=== PATIENT | male | born 1965 | race Caucasian/White ===

== ENCOUNTER 2017-01-11 11:39 | Emergency (ER) | payer SELFPAY ==
[~2017-01-11] VITALS: Ht 152.4 cm; Wt 75.0 kg
[2017-01-11 11:43] VITALS: Ht 152.4 cm; Wt 75.0 kg
--- NOTE | 2017-01-11 13:10 | ERA ---
ER Documentation Chief Complaint Date/Time DATE: 01/11/17 TIME: 13:09 Chief Complaint left flank/abd pain since 399,constipasion HPI The patient is a 51-year-old male, presenting to the ER because of left flank pain radiating to the left coronary that began about 4:30 AM this morning, 10/11 , no aggravating or relieving factors, denies similar symptoms previously, associated with constipation. He denies fever, chills, cough, neck pain, chest pain, dyspnea. He does not smoke nor drink Past medical history: Diabetes mellitus Past Surgical history: None ROS All systems reviewed and are negative except as per history of present illness. Medications Home Meds Active Scripts Metformin* (Glucophage*) 500 Mg Tab, 500 MG PO DAILY, #20 TAB Prov:TROY MONROY MD 01/11/17 Hydrocodone/Acetaminophen ([place] 5-325 Tablet) 1 Each Tablet, 1 TAB PO Q6H Y for PAIN, #7 TAB Prov:TROY MONROY MD 01/11/17 Tamsulosin Hcl* (Flomax*) 0.4 Mg Cap.er.24h, 0.4 MG PO QPM, #10 CAP Prov:TROY MONROY MD 01/11/17 Allergies Allergies: Coded Allergies: No Known Allergy (Unverified , 01/11/17) Physical Exam Vitals Vital Signs Date Time Temp Pulse Resp B/P Pulse Ox O2 Delivery O2 Flow Rate FiO2 01/11/17 14:40 98.0 62 18 146/89 99 01/11/17 11:43 98.0 89 18 167/100 99 Physical Exam Const: No acute distress. Head: Atraumatic. Eyes: Normal Conjunctiva. ENT: Normal External Ears, Nose and Mouth. Neck: Full range of motion. No meningismus. Resp: Clear to auscultation bilaterally. Cardio: Regular rate and rhythm. Abd: Soft, non distended, normal bowel sounds, Mild left flank tenderness, no right lower quadrant, troponin, epigastric, CVA tenderness Skin: No petechiae or rashes. Back: No midline or flank tenderness. Ext: No cyanosis, or edema. Neur: Awake and alert. No focal deficit Psych: Normal Mood and Affect. Result Diagram: 01/11/17 1320 01/11/17 1320 Results 24 hrs Laboratory Tests Test 01/11/17 13:20 01/11/17 14:27 White Blood Count 15.210^3/ul Red Blood Count 5.8210^6/ul Hemoglobin 16.0g/dl Hematocrit 48.1% Mean Corpuscular Volume 82.6fl Mean Corpuscular Hemoglobin 27.5pg Mean Corpuscular Hemoglobin Concent 33.3g/dl Red Cell Distribution Width 12.6% Platelet Count 46981^3/UL Mean Platelet Volume 10.8fl Neutrophils % 85.6% Lymphocytes % 8.8% Monocytes % 5.0% Eosinophils % 0.0% Basophils % 0.2% Nucleated Red Blood Cells % 0.0/100WBC Neutrophils # 13.010^3/ul Lymphocytes # 1.310^3/ul Monocytes # 0.810^3/ul Eosinophils # 0.010^3/ul Basophils # 0.010^3/ul Nucleated Red Blood Cells # 0.010^3/ul Sodium Level 134mmol/L Potassium Level 4.5mmol/L Chloride Level 101mmol/L Carbon Dioxide Level 25mmol/L Anion Gap 13 Blood Urea Nitrogen 18mg/dl Creatinine 1.02mg/dl Glucose Level 195mg/dl Calcium Level 9.6mg/dl Total Bilirubin 0.4mg/dl Direct Bilirubin 0.00mg/dl Indirect Bilirubin 0.4mg/dl Aspartate Amino Transf (AST/SGOT) 35IU/L Alanine Aminotransferase (ALT/SGPT) 58IU/L Alkaline Phosphatase 86IU/L Total Protein 8.5g/dl Albumin 4.4g/dl Globulin 4.10g/dl Albumin/Globulin Ratio 1.07 Lipase 57U/L Bedside Urine pH (LAB) 5.5 Bedside Urine Protein (LAB) Negative Bedside Urine Glucose (UA) 0.25% Bedside Urine Ketones (LAB) Negative Bedside Urine Blood Trace-lysed Bedside Urine Nitrite (LAB) Negative Bedside Urine Leukocyte Esterase (L Negative Current Medications Medications (Trade) Dose Ordered Sig/Harriet Route PRN Reason Start Time Stop Time Status Last Admin Dose Admin Morphine Sulfate (morphine) 4 mg ONCE STAT IV 01/11/17 13:14 01/11/17 13:15 DC 01/11/17 13:44 Ondansetron HCl (Zofran Inj) 4 mg ONCE STAT IV 01/11/17 13:14 01/11/17 13:15 DC 01/11/17 13:44 Procedures/MDM [facility] [address] [address] Radiology Main Line: [phone] DIAGNOSTIC IMAGING REPORT Patient: MILAGRO ALVAREZ : 1965 Age: 51 Sex: M MR #: [id number] DOS: 01/11/17 1314 Ordering MD: TROY MONROY MD Location: E/R Room/Bed: PROCEDURE: CT Abdomen and Pelvis without intravenous contrast. CLINICAL INDICATION: Left flank pain . Constipation TECHNIQUE: CT scan of the abdomen and pelvis without intravenous contrast was performed on a multi-slice CT scanner. Coronal and sagittal reformatted images were obtained from the axial source images. Images were reviewed on a high- resolution PACS workstation. Total DLP = 929.1 mGy-cm. CTDIvol = 15.4 mGy. One or more of the following dose reduction techniques were used: Automated exposure control. Adjustment of the mA and/or kV according to patient size. Use of iterative reconstruction technique. COMPARISON: None. FINDINGS: CT abdomen and pelvis: The lung bases are clear. The heart size is normal in size. The liver is normal in size and diffusely fatty in density without focal mass or intrahepatic biliary dilatation. The spleen is normal in size and homogeneous in density. The pancreas as visualized is normal. The gallbladder shows no evidence of stones or distension . The adrenal glands are normal. The kidneys are symmetric in size. There is mild left-sided hydroureteronephrosis with perinephric inflammation due to a 2 mm stone at the left vesicoureteral junction. There is a nonobstructing 2 mm stone in the right kidney. No evidence of right-sided obstructive uropathy.. The stomach is partially collapsed, but is grossly unremarkable. The small bowels are unremarkable. The colon and rectum are normal. The appendix is normal. There is no evidence of appendicitis or diverticulitis. The pelvic organs are normal. The bladder is normal. There is no abdominal or pelvic adenopathy, free fluid, free air, mass or mesenteric inflammation. The aorta is normal in caliber and course. The osseous structures are intact. No osteolytic or osteoblastic lesions are identified. The soft tissues are within normal limits. Lack of IV and oral contrast limits sensitivity of exam. IMPRESSION: 1. Left vesicoureteral junction 2 mm stone with mild left hydroureteronephrosis and perinephric inflammation. 2. Nonobstructing right renal calculus. 3. Hepatic steatosis. RPTAT: GG .Meng Jerry MD, MD Date Time Electronically viewed and signed by .Meng Jerry MD, MD on 01/11/2017 14:05 .L/ CC: TROY MONROY MD MEDICAL MAKING DECISION: The patient is a 51-year-old male, presenting with acute left renal colic He was treated with morphine 4 mg IV for pain, Zofran 4 mg IV for nausea with good response The differential diagnoses considered include but are not limited to cholelithiasis, cholecystitis, cystitis, pancreatitis, hepatitis, gastritis, peptic ulcer disease, gastric ulcer, appendicitis, diverticulitis, cholangitis, choledocholithiasis, partial small bowel obstruction. Departure Diagnosis: Primary Impression: Renal colic on left side Additional Impression: Hepatic steatosis Condition: Good Comments He was discharged with Flomax, [place] I discussed the findings with the patient. I advised the patient to follow-up with the on-call urologist Dr. Naranjo in about 1-2 days, sooner if needed and return if any concern. TROY MONROY MD Jan 11, 2017 13:10
[2017-01-11] MEDS ORDERED: ONDANSETRON 4 MG INJ IV STA (13:14)
[2017-01-11] MEDS ORDERED: morphine 4 MG/ML VIAL IV STA (13:14)
[2017-01-11 13:34] LABS: BASOPHILS % 0.2 % (0.0-2.0); HEMATOCRIT 48.1 % (42.0-52.0); LYMPHOCYTES # 1.3 10^3/ul (0.8-2.9); LYMPHOCYTES % 8.8 % (15.0-51.0); MEAN CORPUSCULAR HEMOGLOBIN 27.5 pg (29.0-33.0); MEAN CORPUSCULAR HGB CONC 33.3 g/dl (32.0-37.0); MEAN CORPUSCULAR VOLUME 82.6 fl (82.0-101.0); MEAN PLATELET VOLUME 10.8 fl (7.4-10.4); MONOCYTE # 0.8 10^3/ul (0.3-0.9); NEUTROPHILS % 85.6 % (39.0-77.0); PLATELET COUNT 195 10^3/UL (140-415); RED BLOOD COUNT 5.82 10^6/ul (4.70-6.10); RED CELL DISTRIBUTION WIDTH 12.6 % (11.5-14.5); WHITE BLOOD COUNT 15.2 10^3/ul (4.8-10.8)
[2017-01-11 13:55] LABS: ALBUMIN 4.4 g/dl (3.3-4.9); ALBUMIN/GLOBULIN RATIO 1.07; BILIRUBIN,INDIRECT 0.4 mg/dl (0-1.1); BILIRUBIN,TOTAL 0.4 mg/dl (0.2-1.3); CALCIUM 9.6 mg/dl (8.4-10.2); CREATININE 1.02 mg/dl (0.61-1.24); POTASSIUM 4.5 mmol/L (3.5-5.1); TOTAL PROTEIN 8.5 g/dl (6.1-8.1)
--- NOTE | 2017-01-11 14:06 | RADRPT ---
PROCEDURE: CT Abdomen and Pelvis without intravenous contrast. CLINICAL INDICATION: Left flank pain . Constipation TECHNIQUE: CT scan of the abdomen and pelvis without intravenous contrast was performed on a multi -slice CT scanner. Coronal and sagittal reformatted images were obtained from the axial source image s. Images were reviewed on a high-resolution PACS workstation. Total DLP = 929.1 mGy-cm. CTDIvol = 15.4 mGy. One or more of the following dose reduction techniques were used: Automated exposure control. Adjustment of the mA and/or kV according to patient size. Use of iterative reconstruction technique. COMPARISON: None. FINDINGS: CT abdomen and pelvis: The lung bases are clear. The heart size is normal in size. The liver is normal in size and diffus [place] fatty in density without focal mass or intrahepatic biliary dilatation. The spleen is normal in size and homogeneous in density. The pancreas as visualized is normal. The gallbladder shows no evidence of stones or distension . The adrenal glands are normal. The kidneys are symmetric in si ze. There is mild left-sided hydroureteronephrosis with perinephric inflammation due to a 2 mm stone at the left vesicoureteral junction. There is a nonobstructing 2 mm stone in the right kidney. No e vidence of right-sided obstructive uropathy.. The stomach is partially collapsed, but is grossly unremarkable. The small bowels are unremarkable. The colon and rectum are normal. The appendix is normal. There is no evidence of appendicitis or di verticulitis. The pelvic organs are normal. The bladder is normal. There is no abdominal or pelvic a denopathy, free fluid, free air, mass or mesenteric inflammation. The aorta is normal in caliber and course. The osseous structures are intact. No osteolytic or osteo blastic lesions are identified. The soft tissues are within normal limits. Lack of IV and oral con trast limits sensitivity of exam. IMPRESSION: 1. Left vesicoureteral junction 2 mm stone with mild left hydroureteronephrosis and perinephric inf lammation. 2. Nonobstructing right renal calculus. 3. Hepatic steatosis. RPTAT: GG .Meng Jerry MD, MD Date Time Electronically viewed and signed by .Meng Jerry MD, on 01/11/2017 14:05 .L/
[2017-01-11] MEDS ORDERED: HYDR-906 PO (14:18)
[2017-01-11] MEDS ORDERED: TAMS-14 PO (14:18)
[2017-01-11 14:19] LABS: URINE BLOOD (Dip) POC Trace-lysed (NEGATIVE)
[2017-01-11] MEDS ORDERED: METF500T4 PO (14:24)
[2017-01-11 14:40] VITALS: BP 146/89; PULSE 62; RESP 18; TEMP 98
[2017-01-12] MEDS ORDERED: ONDA4TAB14 PO (19:03)
== END 2017-01-11 14:41 | disposition home or self-care (01) ==
LOC: E/R 11:39
DX: N23 Unspecified renal colic (principal); K76.0 Fatty (change of) liver, not elsewhere classified; E11.9 Type 2 diabetes mellitus without complications; Z79.84 Long term (current) use of oral hypoglycemic drugs
CPT/HCPCS: 36415; 74176; 80053; 81003; 83690; 85025; 96374; 96375; 99285; J2270; J2405

== ENCOUNTER 2017-01-12 16:32 | Emergency (ER) | payer OTHER ==
[~2017-01-12] VITALS: Ht 165.1 cm; Wt 89.0 kg
[~2017-01-12 16:32] MED LIST: HYDR-906 PO; METF500T4 PO; TAMS-14 PO
[2017-01-12 16:42] VITALS: Ht 165.1 cm; Wt 89.0 kg
[2017-01-12] MEDS ORDERED: ONDANSETRON (ODT) 4 MG TAB ODT STA (18:54)
--- NOTE | 2017-01-12 19:00 | ERD ---
ER Documentation Chief Complaint Date/Time DATE: 01/12/17 TIME: 18:56 Chief Complaint N/V x 1 day HPI 51-year-old male presents to emergency department for vomiting episodes this morning together with his pain. Patient was seen here yesterday, was diagnosed of renal colic, patient continued to have pain this morning, had left flank pain radiating to the left groin area, was diagnosed to have kidney stones yesterday after laboratory tests and CT scan done. Patient took [place] for pain with much relief. Patient was worried since he had vomiting together with the pain. The vomiting has resolved. At this time, patient denies any pain. Patient states that he passed stones from his urine, now is completely symptom- free, denies any hematuria. Patient denies any fever or chills. ROS All systems reviewed and are negative except as per history of present illness. Medications Home Meds Active Scripts Ondansetron (Ondansetron Odt) 4 Mg Tab.rapdis, 4 MG PO Q6H Y for NAUSEA AND/OR VOMITING, #20 TAB Prov:FISH TINAJERO NP 01/12/17 Metformin* (Glucophage*) 500 Mg Tab, 500 MG PO DAILY, #20 TAB Prov:TROY MONROY MD 01/11/17 Hydrocodone/Acetaminophen ([place] 5-325 Tablet) 1 Each Tablet, 1 TAB PO Q6H Y for PAIN, #7 TAB Prov:TROY MONROY MD 01/11/17 Tamsulosin Hcl* (Flomax*) 0.4 Mg Cap.er.24h, 0.4 MG PO QPM, #10 CAP Prov:TROY MONROY MD 01/11/17 Allergies Allergies: Coded Allergies: No Known Allergy (Unverified , 01/12/17) PMhx/Soc History of Surgery: No Anesthesia Reaction: No Hx Neurological Disorder: No Hx Respiratory Disorders: No Hx Cardiac Disorders: No Hx Psychiatric Problems: No Hx Miscellaneous Medical Probl: Yes (diabetes) Hx Alcohol Use: No Hx Substance Use: No Hx Tobacco Use: No FmHx Family History: diabetes Physical Exam Vitals Vital Signs Date Time Temp Pulse Resp B/P Pulse Ox O2 Delivery O2 Flow Rate FiO2 01/12/17 16:42 99.0 86 16 142/88 96 Physical Exam GENERAL: The patient is well developed and appropriate for usual state of health, in no apparent distress. CHEST: Clear to auscultation bilaterally. There are no rales, wheezes or rhonchi. HEART: Regular rate and rhythm. No murmurs, clicks, rubs or gallops. No S3 or S4. ABDOMEN: Soft, nontender and nondistended. Good bowel sounds. No rebound or guarding. No gross peritonitis. No gross organomegaly or masses. No Doyle sign or McBurney point tenderness. BACK: No midline or flank tenderness. EXTREMITIES: Equal pulses bilaterally. There is no peripheral clubbing, cyanosis or edema. No focal swelling or erythema. Full range of motion. Grossly neurovascularly intact. NEURO: Alert and oriented. Cranial nerves 2-12 intact. Motor strength in all 4 extremities with 5/5 strength. Sensation grossly intact. Normal speech and gait. SKIN: There is no apparent rash or petechia. The skin is warm and dry. HEMATOLOGIC AND LYMPHATIC: There is no evidence of excessive bruising or lymphedema. No gross cervical, axillary, or inguinal lymphadenopathy. Results 24 hrs Current Medications Medications (Trade) Dose Ordered Sig/Harriet Route PRN Reason Start Time Stop Time Status Last Admin Dose Admin Ondansetron HCl (Zofran Odt) 4 mg ONCE STAT ODT 01/12/17 18:54 01/12/17 18:55 DC 01/12/17 18:57 Patient was given Zofran here in the emergency department. After treatment, patient was able to tolerate po fluids here in the emergency department without any vomiting. There is no signs and symptoms of dehydration. Procedures/MDM Medical Decision Making: Patient symptoms of vomiting most likely is from the pain, this time, patient did not have any nausea and does not have any active vomiting. Patient's last vomiting episode was a few hours ago. Likely this can be a side effect from [place], can be also with the pain. At this time, patient does not complain of any more pain. Patient passed kidney stones while urinating. Patient states feeling much better. There is low suspicion for abdominal emergencies at this time. Patients abdominal exam is normal at this time. Patients radiology exam does not show any abdominal emergencies at this time. There is low suspicion for appendicitis, cholecystitis, abdominal aortic aneurysms or peritonitis at this time. There is low suspicion for sepsis. Patient appears well and is hemodynamically stable. Disposition: Home. Condition: Stable Prescription Zofran Instructions: Patient is advised to take medications as prescribed. Patient is advised to rest, increase fluid intake and do brat diet for next 1-2 days and progress as tolerated. Patient is advised that if symptoms are worse, severe abdominal pain, uncontrolled vomiting, high fever, severe flank pain, worst signs and symptoms, to return to the emergency department immediately. Otherwise, patient can follow up with primary care doctor in 5-7 days. Disclaimer: Inadvertent spelling and grammatical errors are likely due to EHR/ dictation software use and do not reflect on the overall quality of patient care. Also, please note that the electronic time recorded on this note does not necessarily reflect the actual time of the patient encounter. Departure Diagnosis: Primary Impression: Vomiting Vomiting type: unspecified Vomiting Intractability: unspecified Nausea presence: unspecified Qualified Code: R11.10 - Vomiting, intractability of vomiting not specified, presence of nausea not specified, unspecified vomiting type Additional Impression: Renal colic on left side Condition: Stable Patient Instructions: Vomiting (6Y-Adult) FISH TINAJERO NP Jan 12, 2017 19:00
[2017-01-12] MEDS ORDERED: ONDA4TAB14 PO (19:03)
== END 2017-01-12 19:15 | disposition home or self-care (01) ==
LOC: FTE 16:32
DX: R11.10 Vomiting, unspecified (principal); N23 Unspecified renal colic; E11.9 Type 2 diabetes mellitus without complications; Z79.84 Long term (current) use of oral hypoglycemic drugs
CPT/HCPCS: Z7502; Z7610; 99283